=== PATIENT | female | born 1940 | race Caucasian/White ===

== ENCOUNTER → 2016-04-22 | Outpatient (CLI) | payer MEDICARE, OTHER | END | disposition home or self-care (01) | LOC: PCVCCLINIC 11:36 | PROVIDERS: ATTEND Internal Medicine Cardiovascular Disease | DX: E78.00 Pure hypercholesterolemia, unspecified (principal); I25.10 Atherosclerotic heart disease of native coronary artery without angina pectoris; M19.90 Unspecified osteoarthritis, unspecified site; I10 Essential (primary) hypertension; E11.9 Type 2 diabetes mellitus without complications; R07.89 Other chest pain | CPT/HCPCS: 80061; 93005; G0463 ==

== ENCOUNTER → 2016-10-21 | Outpatient (CLI) | payer MEDICARE, OTHER ==
--- NOTE | 2016-10-21 15:00 | PCVCIMAG ---
APPROVED REPORT Exam: Stress Echocardiogram Indication: CAD , Hypertension,DM,HLP Patient Location: Echo lab Stress Nurse: Aviva Middleton RN Status: routine Ht: 5 ft 2 in HR: 67 bpm BP: 140/78 mmHg Rhythm: NSR Medical History Medical History: CAD non obstructive, Diabetes, HTN, Hyperlipidemia Cardiac Risk Factors: HTN, Hyperlipidemia, DM Exercise History: Indeterminate Procedure The patient underwent an Exercise Stress Test using the Eric Protocol. Blood pressure, heart rate, and EKG were monitored. An Echocardiogram was performed by underwriting technician in four stages in quad fashion. At peak stress, four selected images were obtained and placed side by side with resting images for comparison. Stress Test Details Stress Test: Exercise stress testing was performed using a Eric protocol. HR Resting HR: 67 bpmMax Heart Rate (APMHR): 144 bpm Max HR Achieved: 160 bpmTarget HR (85% APMHR): 122 bpm % of APMHR: 111 Recovery HR: 120 bpm HR response to stress: Normal HR response to stress BP Resting BP: 140/78 mmHg Max BP: 184/78 mmHg Recovery BP: 136/80 mmHg ECG Resting ECG: Sinus Rhythm Stress ECG: SVT WITH OCCASIONAL PVCs ST Change: Nondiagnostic ST abnormalities Arrhythmia: SVT,PVCS Recovery ECG: Sinus Rhythm Clinical Reason for Termination: Maximal effort Stress Symptoms: RT ARM,NECK PAIN Exercise duration: 4 min 46 sec Highest Stage Achieved: Stage 2: 2.5 mph at 12% grade. Exercise capacity: 7 METs Overall Exercise Capacity for Age: Poor Angina Score: Non-Limiting Stress ECG Conclusion The patient exercised according to the ERIC for 4:46 mins, achieving a work level of Max. METS: 7 . The resting heart rate o f67 bpm gilberto to a maximal heart rate of 160 bpm. This value represents 111 % of the maximal, age-predicted heart rate. The resting blood pressure of 140/78 mmHg, gilberto to a maximum blood pressure of 184/78 mmHg. The exercise test was stopped due to fatigue and dyspnea. Pre-Stress Echo The resting Echocardiogram showed normal left ventricular contractility with an estimated Ejection Fraction of about 55-60%. Normal wall motion in all segments on baseline images. Post-Stress Echo The stress Echocardiogram showed normal left ventricular contractility with an estimated Ejection Fraction of about 65-70%. Normal augmentation of wall motion in all segments on post stress images. Clinical No clinical or ECG evidence for ischemia. Conclusion Clinical Response: Non-ischemic Exercise Capacity: Below Average Stress ECG Response: Non-ischemic Stress Echo Images: Non-ischemic
== END | disposition home or self-care (01) ==
LOC: PCVCIMAG 10:51
PROVIDERS: ATTEND Internal Medicine Cardiovascular Disease
DX: I49.3 Ventricular premature depolarization (principal); I25.10 Atherosclerotic heart disease of native coronary artery without angina pectoris; E11.9 Type 2 diabetes mellitus without complications; I10 Essential (primary) hypertension; E78.5 Hyperlipidemia, unspecified; M54.2 Cervicalgia
CPT/HCPCS: 93325; 93351

== ENCOUNTER → 2017-06-13 | Outpatient (CLI) | payer MEDICARE, OTHER | END | disposition home or self-care (01) | LOC: PCVCCLINIC 12:38 | DX: I10 Essential (primary) hypertension (principal); I25.10 Atherosclerotic heart disease of native coronary artery without angina pectoris; E78.00 Pure hypercholesterolemia, unspecified; E11.9 Type 2 diabetes mellitus without complications; Z79.82 Long term (current) use of aspirin; Z79.899 Other long term (current) drug therapy | CPT/HCPCS: 80061; 93005; G0463 ==

== ENCOUNTER → 2018-01-12 | Outpatient (CLI) | payer MEDICARE, OTHER ==
--- NOTE | 2018-01-12 17:06 | PCVCIMAG ---
APPROVED REPORT Study performed: 01/12/2018 10:27:44 Exam: Stress Echocardiogram Indication: CAD s/p PCI,chest pressure,palpitations Patient Location: Echo lab Stress Nurse: Josefa Persaud RN Room #: 2 Status: routine Ht: 5 ft 2 in HR: 76 bpm BP: 168/80 mmHg Rhythm: NSR Medical History Medical History: CAD s/p stent, Diabetes Cardiac Risk Factors: HTN, Hyperlipidemia, DM Previous Cardiac Procedures: PCI Pretest Chest Pain Characteristics: No chest pain Exercise History: Indeterminate Procedure The patient underwent an Exercise Stress Test using the Cam Protocol. Blood pressure, heart rate, and EKG were monitored. An Echocardiogram was performed by eye technician in four stages in quad fashion. At peak stress, four selected images were obtained and placed side by side with resting images for comparison. Stress Test Details HR Resting HR: 76 bpmMax Heart Rate (APMHR): 143 bpm Max HR Achieved: 158 bpmTarget HR (85% APMHR): 121 bpm % of APMHR: 110 Recovery HR: 89 bpm HR response to stress: Normal HR response to stress BP Resting BP: 168/80 mmHg Max BP: 188/74 mmHg Recovery BP: 145/78 mmHg BP response to stress: Normal blood pressure response to stress. ECG Resting ECG: Sinus Rhythm, NSSTT changes Stress ECG: Sinus Rhythm, SVT ST Change: Downsloping ST depression Arrhythmia: SVT Recovery ECG: Sinus Rhythm, ST-T abnormalities Recovery ST Change: Downsloping ST depression Recovery Arrhythmia: SVT Clinical Reason for Termination: Maximal effort Stress Symptoms: Chest pressure,throat tightness with SVT Exercise duration: 6 min 49 sec Highest Stage Achieved: Stage 3: 3.4 mph at 14% grade. Exercise capacity: 9.5 METs Overall Exercise Capacity for Age: Average Scale: Sedentary Angina Score: Non-Limiting No complications. Symptoms resolved during recovery. Stress ECG Conclusion The patient exercised according to the CAM protocol for 6:49 mins; achieving a work level of 9.5 METS. The resting heart rate of 76 bpm gilberto to a maximum heart rate of 158 bpm. This value represent 110% of the maximal, age-predicted heart rate. The resting blood pressure of 168/80 mmHg, gilberto to a maximum blood pressure of 188/74 mmHg. The exercise test was stopped due to fatigue. Pre-Stress Echo The resting Echocardiogram showed normal left ventricular contractility with an estimated Ejection Fraction of about 55-60%. Normal wall motion in all segments on baseline images. Post-Stress Echo The stress Echocardiogram showed normal left ventricular contractility with an estimated Ejection Fraction of about 65-70%. Normal augmentation of wall motion in all segments on post stress images. Conclusion Clinical Response: Equivocal Exercise Capacity: Average Stress ECG Response: Equivocal Stress Echo Images: Non-ischemic Normal stress echocardiogram with maximal exercise stress. No echocardiographic evidence for exercise induced ischemia. <Conclusion> Normal stress echocardiogram with maximal exercise stress. No echocardiographic evidence for exercise induced ischemia.
== END | disposition home or self-care (01) ==
LOC: PCVCIMAG 10:12
PROVIDERS: ATTEND Internal Medicine Cardiovascular Disease
DX: I25.10 Atherosclerotic heart disease of native coronary artery without angina pectoris (principal); I10 Essential (primary) hypertension; E11.9 Type 2 diabetes mellitus without complications; E78.5 Hyperlipidemia, unspecified; R00.2 Palpitations; Z95.5 Presence of coronary angioplasty implant and graft; Z88.8 Allergy status to other drugs, medicaments and biological substances
CPT/HCPCS: 93325; 93351

== ENCOUNTER → 2018-08-17 | Outpatient (CLI) | payer MEDICARE, OTHER | END | disposition home or self-care (01) | LOC: PCVCCLINIC 11:30 | PROVIDERS: ATTEND Internal Medicine Cardiovascular Disease | DX: I25.10 Atherosclerotic heart disease of native coronary artery without angina pectoris (principal); E78.00 Pure hypercholesterolemia, unspecified; I10 Essential (primary) hypertension; E11.9 Type 2 diabetes mellitus without complications; Z95.5 Presence of coronary angioplasty implant and graft; Z79.82 Long term (current) use of aspirin | CPT/HCPCS: 36415; 80061; 93005; G0463 ==

== ENCOUNTER → 2018-10-17 | Outpatient (CLI) | payer MEDICARE, OTHER ==
--- NOTE | 2018-10-17 17:00 | PCVCIMAG ---
APPROVED REPORT Study performed: 10/17/2018 15:14:07 Exam: Stress Echocardiogram Indication: Chest pain, Hx coronary stent Patient Location: Echo lab Stress Nurse: Aviva Middleton RN Room #: 2 Status: routine Ht: 5 ft 2 in HR: 72 bpm BP: 136/64 mmHg Rhythm: Atrial Fibrillation Medical History Medical History: CAD s/p stent,, HTN Cardiac Risk Factors: HTN, Hyperlipidemia Previous Cardiac Procedures: PCI Pretest Chest Pain Characteristics: Non-exertional Chest pain, pain with inspiration Exercise History: Physically active Procedure The patient underwent an Exercise Stress Test using the Eric Protocol. Blood pressure, heart rate, and EKG were monitored. An Echocardiogram was performed by stage technician in four stages in quad fashion. At peak stress, four selected images were obtained and placed side by side with resting images for comparison. Stress Test Details Stress Test: Exercise stress testing was performed using a Eric protocol. HR Resting HR: 72 bpmMax Heart Rate (APMHR): 142 bpm Max HR Achieved: 139 bpmTarget HR (85% APMHR): 120 bpm % of APMHR: 97 Recovery HR: 81 bpm HR response to stress: Normal HR response to stress BP Resting BP: 136/64 mmHg Max BP: 170/60 mmHg Recovery BP: 140/64 mmHg BP response to stress: Normal blood pressure response to stress. ECG Resting ECG: Sinus Rhythm Stress ECG: Sinus Rhythm ST Change: Horizontal ST depression Maximum ST Deviation: 1.5 mm Arrhythmia: Frequent PVC,PAC, Recovery ECG: Sinus Rhythm, NSSTT changes Recovery ST Change: Downsloping ST depression Recovery ST Deviation: 0.5 mm Recovery Arrhythmia: frequent PVCs, PACs Clinical Reason for Termination: Maximal effort Stress Symptoms: Chest pain with inspiration Exercise duration: 5 min 09 sec Highest Stage Achieved: Stage 2: 2.5 mph at 12% grade. Exercise capacity: 7.0 METs Overall Exercise Capacity for Age: Poor Scale: Active Angina Score: None No complications. Stress ECG Conclusion The patient exercised according to the ERIC protocol for 5:09 mins; achieving a work level of 7.0METS. The resting heart rate of 72 bpm gilberto to a maximum heart rate of 139 bpm. This value represent 97% of the maximal, age-predicted heart rate. The resting blood pressure of 136/64 mmHg, gilberto to a maximum blood pressure of 170/60 mmHg. The exercise test was stopped due to fatigue and dyspnea. Gates Treadmill Score is -2.5 which is Moderate risk. Pre-Stress Echo The resting Echocardiogram showed normal left ventricular contractility with an estimated Ejection Fraction of about 55-60%. Normal wall motion in all segments on baseline images. Post-Stress Echo The stress Echocardiogram showed normal left ventricular contractility with an estimated Ejection Fraction of about 65-70%. Normal augmentation of wall motion in all segments on post stress images. Clinical No clinical or ECG evidence for ischemia. Conclusion Clinical Response: Non-ischemic Exercise Capacity: Below Average Stress ECG Response: Ischemic Stress Echo Images: Non-ischemic Ischemic EKG changes are similar to the stress test done in December 2017. Consistent with false positive ECG response. No echocardiographic evidence for exercise induced ischemia. Normal stress echocardiogram with maximal exercise stress. Compared to the prior study dated December 2017, no significant change. <Conclusion> Ischemic EKG changes are similar to the stress test done in December 2017. Consistent with false positive ECG response. No echocardiographic evidence for exercise induced ischemia. Normal stress echocardiogram with maximal exercise stress.
== END | disposition home or self-care (01) ==
LOC: PCVCIMAG 14:48
PROVIDERS: ATTEND Internal Medicine Cardiovascular Disease
DX: I25.10 Atherosclerotic heart disease of native coronary artery without angina pectoris (principal); I10 Essential (primary) hypertension; E78.00 Pure hypercholesterolemia, unspecified; E11.9 Type 2 diabetes mellitus without complications; R07.9 Chest pain, unspecified; Z95.5 Presence of coronary angioplasty implant and graft
CPT/HCPCS: 93325; 93351